=== PATIENT | female | born 1995 | race Caucasian/White ===

== ENCOUNTER → 2021-08-28 | Outpatient (CLI) | payer OTHER, SELFPAY ==
[2021-08-28 09:56] LABS: Thyroid Stim Hormone (TSH) 1.26 uIU/mL (0.358-3.74)
[2021-08-31 15:39] LABS: Testosterone Free 4.1 pg/mL (0.0-4.2)
== END | disposition home or self-care (01) ==
LOC: LAB 08:39
PROVIDERS: Referring Provider Nurse Practitioner Women's Health; Visit Provider Nurse Practitioner Women's Health
DX: Z13.29 Encounter for screening for other suspected endocrine disorder (principal); N97.0 Female infertility associated with anovulation
CPT/HCPCS: 36415; 82627; 84146; 84402; 84443; 82626

== ENCOUNTER → 2021-09-15 | Outpatient (CLI) | payer OTHER, SELFPAY ==
[2021-09-15 09:17] LABS: Progesterone Level 7.16 ng/mL (See Comment)
== END | disposition home or self-care (01) ==
PROVIDERS: Referring Provider Nurse Practitioner Women's Health; Visit Provider Nurse Practitioner Women's Health
DX: N97.8 Female infertility of other origin (principal)
CPT/HCPCS: 36415; 84144

== ENCOUNTER → 2021-10-03 | Outpatient (CLI) | payer OTHER, SELFPAY ==
--- NOTE | 2021-10-03 13:07 | RAD_ITS ---
STUDY: HYSTEROSALPINGOGRAM. REASON FOR EXAM: Female, 26 years old. Infertility FLUOROSCOPY TIME (if supplied): ( 20 seconds ) minutes/seconds. 3 images were obtained. TECHNIQUE: A hysterosalpingogram was performed by the sales utility representative. Imaging was provided. COMPARISON: None. FINDINGS: The uterus is unremarkable. No intraluminal filling defect is seen. Both fallopian tubes are patent with free spill. RAD/Salpingogram IMPRESSION: Unremarkable hysterosalpingogram. Electronically Signed: Carlos Ortiz MD at 14:00 EDT ,
--- NOTE | 2021-10-03 14:07 | OP.PCM_ITS ---
Problems Associated Problem List Diagnoses (1) Infertility: Operative Report Date of Procedure: 10/03/21 Preop diagnosis: Infertility Postop diagnosis: Same plus bilateral tubal patency Procedure: Hysterosalpingogram Surgeon: Amanda Mejia Implantable devices: None Complications: None Findings: Bilateral tubal patency and normal uterine cavity Operative details: Patient was taken to the x-ray room and was placed on the x- ray table and was in the dorsal lithotomy position. Speculum was placed in the vagina and the cervix prepped with Betadine and the HSG catheter was easily introduced into the uterus and speculum removed. Radiologist was brought in and while pushing radiopaque dye into the uterus via the HSG catheter the radiologist took multiple images and views and confirmed bilateral tubal patency seen. No gross uterine filling defects or abnormalities were seen. All instruments removed from the vagina and the uterus without complication. Patient tolerated the procedure well.
== END | disposition home or self-care (01) ==
PROVIDERS: PCP Family Medicine; Referring Provider Obstetrics & Gynecology; Visit Provider Obstetrics & Gynecology
DX: N97.0 Female infertility associated with anovulation (principal)
CPT/HCPCS: 58340; 74740; Q9967

== ENCOUNTER → 2021-12-16 | Outpatient (CLI) | payer OTHER, SELFPAY ==
[2021-12-16 16:27] LABS: Progesterone Level 13.21 ng/mL (See Comment)
== END | disposition home or self-care (01) ==
LOC: LAB 15:17
PROVIDERS: PCP Family Medicine; Visit Provider Nurse Practitioner Women's Health
DX: N97.0 Female infertility associated with anovulation (principal)
CPT/HCPCS: 36415; 84144

== ENCOUNTER → 2022-01-21 | Outpatient (CLI) | payer OTHER, SELFPAY ==
[2022-01-21 11:57] LABS: Amphetamine Urine VISTA NEGATIVE (<1000 ng/mL); Barbiturate Urine VISTA NEGATIVE (< 200 ng/mL); Benzodiazepine Urine VISTA NEGATIVE (< 200 ng/mL); Cocaine Urine VISTA NEGATIVE (< 300 ng/mL); Ecstacy Urine VISTA NEGATIVE (< 500 ng/mL); Methadone Urine VISTA NEGATIVE (< 300 ng/mL); PCP Urine VISTA NEGATIVE (< 25 ng/mL); THC Urine VISTA NEGATIVE (< 50 ng/mL); Vista UDS pH Range 6
[2022-01-22 22:06] LABS: Chlamydia By Nucleic Acid AMP Negative (Negative)
[2022-01-23 20:28] LABS: Gonococcus By Nucleic Acid AMP Negative (Negative)
== END | disposition home or self-care (01) ==
LOC: LABSPEC 11:28
PROVIDERS: PCP Family Medicine; Visit Provider Obstetrics & Gynecology
DX: O09.90 Supervision of high risk pregnancy, unspecified, unspecified trimester (principal)
CPT/HCPCS: 80307; 87086; 87088; 87491; 87591

== ENCOUNTER → 2022-02-20 | Outpatient (CLI) | payer OTHER, SELFPAY ==
[2022-02-20 16:44] LABS: Absolute Lymphocyte Count 1.85 X10^3/uL (0.83-4.51); Absolute Neutrophil Count 2.9 X10^3/uL (2.0-7.7); Basophil# 0.03 X10^3/uL; Basophil% 0.5 % (0-1); Eosinophil# 0.04 X10^3/uL; Eosinophils% 0.7 % (0-5); Hematocrit 35.6 % (37-47); Hemoglobin 12.5 g/dL (12.0-15.0); Lymphocyte # 1.85 X10^3/ul (0.83-4.51); Lymphocyte % 33.6 % (19-41); Mean Corp Hgb Conc 35.1 g/dL (32-36); Mean Corpuscular Hgb 31.4 pg (27.0-32.0); Mean Corpuscular Volume 89.4 fL (81-99); Monocyte# 0.72 X10^3/uL; Monocyte% 13.1 % (0-10); NRBC Flagged by Analyzer 0 % (0-5); Neutrophil # 2.86 X10^3/uL (2.7-7.7); Neutrophil % 51.9 % (47-70); Platelet Count 154 K/mm3 (150-450); RBC Distribution Width CV 11.5 % (11.6-14.6); RBC Distribution Width SD 37.1 fl (35.1-43.9); Red Blood Count 3.98 M/mm3 (4.2-5.4); White Blood Count 5.5 K/mm3 (4.4-11.0)
[2022-02-23 09:55] LABS: HIV - WCH Non-Reactive (Nonreactive); Hepatitis B Surface Antigen Non-Reactive (Nonreactive); Hepatitis C Antibody Non-Reactive (Nonreactive); Rubella IgG Reactive (Nonreactive); Syphilis Antibodies Non-reactive
== END | disposition home or self-care (01) ==
PROVIDERS: PCP Family Medicine; Visit Provider Obstetrics & Gynecology
DX: O09.90 Supervision of high risk pregnancy, unspecified, unspecified trimester (principal)
CPT/HCPCS: 36415; 85025; 86703; 86762; 86780; 86803; 86850; 86900; 86901; 87340

== ENCOUNTER → 2022-06-11 | Outpatient (CLI) | payer OTHER, SELFPAY ==
[2022-06-11 09:17] LABS: Absolute Lymphocyte Count 1.95 X10^3/uL (0.83-4.51); Absolute Neutrophil Count 5.9 X10^3/uL (2.0-7.7); Basophil# 0.03 X10^3/uL; Basophil% 0.4 % (0-1); Eosinophil# 0.06 X10^3/uL; Eosinophils% 0.7 % (0-5); Hematocrit 33.7 % (37-47); Hemoglobin 11.5 g/dL (12.0-15.0); Lymphocyte # 1.95 X10^3/ul (0.83-4.51); Mean Corp Hgb Conc 34.1 g/dL (32-36); Mean Corpuscular Hgb 30.9 pg (27.0-32.0); Mean Corpuscular Volume 90.6 fL (81-99); Monocyte# 0.48 X10^3/uL; Monocyte% 5.7 % (0-10); NRBC Flagged by Analyzer 0 % (0-5); Neutrophil # 5.91 X10^3/uL (2.7-7.7); Neutrophil % 69.7 % (47-70); Platelet Count 147 K/mm3 (150-450); RBC Distribution Width CV 12.2 % (11.6-14.6); RBC Distribution Width SD 40.1 fl (35.1-43.9); Red Blood Count 3.72 M/mm3 (4.2-5.4); White Blood Count 8.5 K/mm3 (4.4-11.0)
[2022-06-11 09:21] LABS: Glucose Challenge Gest 1H 50g 127 mg/dL (70-140)
[2022-06-11 10:07] LABS: HIV - WCH Non-Reactive (Nonreactive); Syphilis Antibodies Non-reactive
== END | disposition home or self-care (01) ==
LOC: PAVLAB 08:51
PROVIDERS: Obstetrics & Gynecology; PCP Family Medicine; Referring Provider Obstetrics & Gynecology; Visit Provider Obstetrics & Gynecology
DX: O09.90 Supervision of high risk pregnancy, unspecified, unspecified trimester (principal); Z13.1 Encounter for screening for diabetes mellitus; Z3A.00 Weeks of gestation of pregnancy not specified
CPT/HCPCS: 36415; 82950; 85025; 86703; 86780

== ENCOUNTER → 2022-07-08 | Outpatient (CLI) | payer OTHER, SELFPAY ==
[2022-07-08 13:10] LABS: Absolute Neutrophil Count 6.1 X10^3/uL (2.0-7.7); Basophil# 0.05 X10^3/uL; Basophil% 0.6 % (0-1); Eosinophil# 0.04 X10^3/uL; Eosinophils% 0.4 % (0-5); Hematocrit 34.6 % (37-47); Hemoglobin 11.8 g/dL (12.0-15.0); Lymphocyte % 23.4 % (19-41); Mean Corp Hgb Conc 34.1 g/dL (32-36); Mean Corpuscular Hgb 30.6 pg (27.0-32.0); Mean Corpuscular Volume 89.6 fL (81-99); Mean Platelet Vol. 9.8 fl (6.2-12.0); Monocyte% 6.7 % (0-10); NRBC Flagged by Analyzer 0 % (0-5); Neutrophil % 67.9 % (47-70); Platelet Count 143 K/mm3 (150-450); RBC Distribution Width CV 12.3 % (11.6-14.6); RBC Distribution Width SD 39.7 fl (35.1-43.9); Red Blood Count 3.86 M/mm3 (4.2-5.4)
== END | disposition home or self-care (01) ==
LOC: PAVLAB 12:59
PROVIDERS: PCP Family Medicine; Referring Provider Obstetrics & Gynecology; Visit Provider Obstetrics & Gynecology
DX: O99.119 Other diseases of the blood and blood-forming organs and certain disorders involving the immune mechanism complicating pregnancy, unspecified trimester (principal); D69.6 Thrombocytopenia, unspecified
CPT/HCPCS: 36415; 85025

== ENCOUNTER → 2022-08-05 | Outpatient (CLI) | payer OTHER, SELFPAY | END | disposition home or self-care (01) | LOC: LABSPEC 15:04 | PROVIDERS: PCP Family Medicine; Referring Provider Nurse Practitioner Women's Health; Visit Provider Nurse Practitioner Women's Health | DX: O09.90 Supervision of high risk pregnancy, unspecified, unspecified trimester (principal); Z3A.00 Weeks of gestation of pregnancy not specified | CPT/HCPCS: 87081 ==

== ENCOUNTER → 2022-08-15 | Outpatient (CLI) | payer OTHER, SELFPAY ==
[2022-08-15 11:46] LABS: Absolute Lymphocyte Count 1.84 X10^3/uL (0.83-4.51); Absolute Neutrophil Count 5.4 X10^3/uL (2.0-7.7); Basophil# 0.05 X10^3/uL; Basophil% 0.6 % (0-1); Eosinophil# 0.02 X10^3/uL; Eosinophils% 0.2 % (0-5); Hematocrit 35.3 % (37-47); Hemoglobin 11.7 g/dL (12.0-15.0); Lymphocyte # 1.84 X10^3/ul (0.83-4.51); Lymphocyte % 22.4 % (19-41); Mean Corp Hgb Conc 33.1 g/dL (32-36); Mean Corpuscular Hgb 30.1 pg (27.0-32.0); Mean Corpuscular Volume 90.7 fL (81-99); Mean Platelet Vol. 10.7 fl (6.2-12.0); Monocyte# 0.73 X10^3/uL; Monocyte% 8.9 % (0-10); NRBC Flagged by Analyzer 0 % (0-5); Neutrophil # 5.41 X10^3/uL (2.7-7.7); Neutrophil % 65.8 % (47-70); Platelet Count 144 K/mm3 (150-450); RBC Distribution Width CV 12.4 % (11.6-14.6); RBC Distribution Width SD 39.8 fl (35.1-43.9); Red Blood Count 3.89 M/mm3 (4.2-5.4); White Blood Count 8.2 K/mm3 (4.4-11.0)
== END | disposition home or self-care (01) ==
LOC: LAB 11:06
PROVIDERS: PCP Family Medicine; Referring Provider Nurse Practitioner Women's Health; Visit Provider Nurse Practitioner Women's Health
DX: O99.119 Other diseases of the blood and blood-forming organs and certain disorders involving the immune mechanism complicating pregnancy, unspecified trimester (principal); D69.6 Thrombocytopenia, unspecified; Z3A.00 Weeks of gestation of pregnancy not specified
CPT/HCPCS: 36415; 85025

== ENCOUNTER 2022-09-04 06:35 | Inpatient (IN) | payer OTHER, SELFPAY ==
[2022-09-04] VITALS (29 sets, daily range): BP systolic 98–139; BP diastolic 51–80; PULSE 63–126; TEMP 36.3–37.2; O2SAT 82–100; BMI 28.5
[2022-09-04 06:26] LABS: ROM Internal Control Test YES-OK TO RESULT pt. (Internal QC)
[2022-09-04 06:28] LABS: ROM Patient Test POSITIVE (Negative)
[2022-09-04] MEDS: Lactated Ringers 1,000 ML 50 ML IV (07:20)
[2022-09-04 07:26] LABS: Absolute Lymphocyte Count 2.11 X10^3/uL (0.83-4.51); Absolute Neutrophil Count 7.7 X10^3/uL (2.0-7.7); Basophil# 0.04 X10^3/uL; Basophil% 0.4 % (0-1); Eosinophil# 0.02 X10^3/uL; Eosinophils% 0.2 % (0-5); Hematocrit 38.1 % (37-47); Lymphocyte # 2.11 X10^3/ul (0.83-4.51); Lymphocyte % 19.8 % (19-41); Mean Corp Hgb Conc 34.1 g/dL (32-36); Mean Corpuscular Hgb 30.2 pg (27.0-32.0); Mean Corpuscular Volume 88.4 fL (81-99); Mean Platelet Vol. 10.8 fl (6.2-12.0); Monocyte# 0.66 X10^3/uL; Monocyte% 6.2 % (0-10); NRBC Flagged by Analyzer 0 % (0-5); Neutrophil # 7.72 X10^3/uL (2.7-7.7); Neutrophil % 72.6 % (47-70); Platelet Count 157 K/mm3 (150-450); RBC Distribution Width CV 13.2 % (11.6-14.6); RBC Distribution Width SD 41.6 fl (35.1-43.9); Red Blood Count 4.31 M/mm3 (4.2-5.4); White Blood Count 10.6 K/mm3 (4.4-11.0)
--- NOTE | 2022-09-04 07:26 | HP.PCM.OB_ITS ---
HPI - General General Date of Admission: 09/04/22 HPI Narrative PHI TREVIÑO, is a 27 F who presents with contracitons and ROM since 9 pm wednesday. she denies any signs of infection no fever ctx are increasing this morning. she has had clear fluid intermittently no vb good FM Maternal Data Information MARY KATE Calculator Estimated Delivery Date Method Current WG Current Estimate 09/02/22 LMP (Certain) 40w 2d Other Estimates 09/02/22 Ultrasound #1 40w 2d PFSH PFSH Medical History History of depression Home Medications magnesium 200 mg tablet 300 mg PO DAILY 07/08/22 [History Last Taken 09/03/22 21:00] valacyclovir 500 mg tablet (Valtrex) 500 mg PO DAILY #30 tabs 08/13/22 [Rx Last Taken 09/04/22 04:00] prenat.vits,jamal,cxf-[id number] 1 tab PO DAILY 09/04/22 [History Last Taken 09/04/22 04:00] Allergy/AdvReac Type Severity Reaction Status Date / Time No Known Allergies Allergy Verified 09/04/22 06:07 Family History Grandmother Breast cancer Father History of throat cancer Oral-mouth cancer Surgical History [place] teeth removed Social History adopted: No household members: spouse housing: house current occupational status: employed current occupation: teacher current occupational exposures/hazards: No pets and animals: Yes pets and animals: dog(s) history of recent travel: Yes (October) out of state: Yes out of country: No sexually active: Yes Smoking Status: Never smoker alcohol intake: former details: occasional with dinner prior to substance use type: does not use well-balanced diet: daily or most days caffeine: Yes Type: coffee Number of servings: 1 eating out: rarely or never during the past year weight has: remained stable what type of physical activity do you participate in: none and walking flory/tenriism: Cheondoism seatbelt use: always do you feel safe at home: Yes additional social history: - Avinash- [employer] History 1 Elective abortions Hx Para 0 Spontaneous abortions Hx # Term Pregnancies Ectopic pregnancies Hx # Pregnancies Multiple births # of living children Visit Details Expected Delivery Route/Plan Labor Preferences- CB/BF classes: yes, enc just breath class labor support person: Avinash labor intervention preferences: pain management options preferred: goal unmedicated, open to epidural cut cord/dad catch: would like to announce gender;yes to catching!! : yes PP control planned: discussed discussed possible routes of delivery and associated risks: [] special requests: [] Plans Covid status: unvaccinated Flu vaccine: declines Tdap vaccine: Rhogam: na LARC form signed: yes Problem list reviewed and updated with the most current plan of care details and appropriate orders placed. Relevant counseling for the gestational age provided. Continue routine care and follow up unless otherwise noted in visit notes/problem list details OB Flowsheet Initial Weight: Not Recorded Date -?-?-?-?-?-?-?-?-?-?-?-?- EGA Weight BP Urine Prot -?-?-?-?-?-?-?-?-?-?-?-?- Glucose FHR FuHt Pres Dilation -?-?-?-?-?-?-?-?-?-?-?-?- Effaced St Visit Note 01/21/22 -?-?-?-?-?-?-?-?-?-?-?-?- 8w 0d 128 lb 117/75 -?-?-?-?-?-?-?-?-?-?-?-?- -?-?-?-?-?-?-?-?-?-?-?-?- JV- CRL consiste nt with LMP 02/20/22 -?-?-?-?-?-?-?-?-?-?-?-?- 12w 2d 131 lb 122/58 Negative -?-?-?-?-?-?-?-?-?-?-?-?- Negative 160 -?-?-?-?-?-?-?-?-?-?-?-?- SM- no vb crampi ng 03/19/22 -?-?-?-?-?-?-?-?-?-?-?-?- 16w 1d 136 lb 6 oz 111/61 Nega tive -?-?-?-?-?-?-?-?-?-?-?-?- Negative 145 -?-?-?-?-?-?-?-?-?-?-?-?- JV- no lof, vagi nal bleeding, or cramping. new ob labs reviewed. wants gender to be a surprise 04/13/22 -?-?-?-?-?-?-?-?-?-?-?-?- 19w 5d 140 lb 8 oz Negative -?-?-?-?-?-?-?--?-?-?-?-?- Negative 150 20 -?-?-?-?-?-?-?-?-?-?-?-?- LC- no lof, vb. reviewed anatomy results. pelvic rest til 28 weeks. feel occ flutters 05/14/22 -?-?-?-?-?-?-?-?-?-?-?-?- 24w 1d 147 lb 6 oz 121/77 Nega tive -?-?-?-?-?-?-?-?-?-?-?-?- Negative 158 24 -?-?-?-?-?-?-?-?-?-?-?-?- JV- no lof, vagi nal bleeding, or dec fm. has rpt scan for placenta on her birthday! [birth year] -?-?-?-?-?-?-?-?-?-?-?-?- 28w 1d 153 lb 8 oz 108/70 Nega tive -?-?-?-?-?-?-?-?-?-?-?--?- Negative 143 28 -?-?-?-?-?-?-?-?-?-?-?-?- MH-NO VB, LOF. G ood FM. Larc. 28 wk labs. 06/25/22 -?-?-?-?-?-?-?-?-?-?-?-?- 30w 1d 154 lb 4 oz 117/74 Nega tive -?-?-?-?-?-?-?-?-?-?-?-?- Negative 145 30 -?-?-?-?-?-?-?-?-?-?-?-?- JV- no lof ,vagi nal bleeding, or dec fm. pt has pp depression history and was told to take ssri starting now. She started it and had some side effects of dizziness and fatigue. recommend stopping and restarting in period. 07/08/22 -?-?-?-?-?-?-?-?-?-?-?-?- 32w 0d 159 lb 2 oz 112/71 -?-?-?-?-?-?-?-?-?-?-?-?- 140 33 -?-?-?-?-?-?-?-?-?-?-?-?- LC- no lof/vb/ct x. good fm.will repeat cbc in 4 weeks. 07/23/22 -?-?-?-?-?-?-?-?-?-?-?-?- 34w 1d 161 lb 4 oz 113/74 Nega tive -?-?-?-?-?-?-?-?-?-?-?-?- Negative 145 34 -?-?-?-?-?-?-?-?-?-?-?-?- KW- good FM. no lof/vb/ctx. GBS next visit. labor precautions reviewed 08/05/22 -?-?-?-?-?-?-?-?-?-?-?-?- 36w 0d 161 lb 4 oz 120/81 Nega tive -?-?-?-?-?-?-?-?-?-?-?-?- Negative 153 -?-?-?-?-?-?-?-?-?-?-?-?- MH-No VB, LOF or CTX. Good Fm. GBS 08/13/22 -?-?-?-?-?-?-?-?-?-?-?-?- 37w 1d 162 lb 123/78 Positive -?-?-?-?-?-?-?-?-?-?-?-?- Negative 145 38 Cephalic -?-?-?-?-?-?-?-?-?-?-?-?- KW- good FM. no lof, ctx, vb. denies need for VE today. Valtrex, CBC and keflex (Impetigo) ordered. 08/19/22 -?-?-?-?-?-?-?-?-?-?-?-?- 38w 0d 167 lb 8 oz 106/73 Nega tive -?-?-?-?-?-?-?-?-?-?--?-?- Negative 146 38 0 -?-?-?-?-?-?-?-?-?-?-?-?- 60 -2 LC- good f m. no lof/ctx.vb. impetigo improving.plt 144. stable. 08/27/22 -?-?-?-?-?-?-?--?-?-?-?-?- 39w 1d 166 lb 127/84 101/64 -?-?-?-?-?-?-?-?-?-?-?-?- 135 39 Cephalic 1 -?-?-?-?-?-?-?-?-?-?-?-?- 60 -2 LC- good f m. no lof/ctx/vb. on valtrex. trace protein/neg glucose. denies PEC s/sx. BP normal. 09/02/22 -?-?-?-?-?-?-?-?-?-?-?-?- 40w 0d 167 lb 4 oz 123/84 Nega tive -?-?-?-?-?-?-?-?-?-?-?-?- Negative 140 40 Cephalic 1 .5 -?-?-?-?-?-?-?-?-?-?-?-?- 80 -2 LC- no vb/ ctx/lof. good fm. membranes swept today 09/04/22 -?-?-?-?-?-?-?-?-?-?-?-?- 40w 2d 166 lb 7.184 oz 125/73 -?-?-?-?-?-?-?-?-?-?-?-?- -?-?-?-?-?-?-?-?-?-?-?-?- NST FHR Rate Baby A Baseline: 130 Variability:: Moderate Accelerations:: 15 x 15 Decelerations:: None NST Reactive:: Yes FHR Category:: Category I Uterine Activity:: irregular ROS Constitutional Constitutional: Reports systems reviewed and no addt'l complaints, except as documented Eyes Eyes: Denies change in vision ENT HEENT: Reports systems reviewed and no addt'l complaints, except as documented; Denies headache(s) Cardiovascular Cardiovascular: Reports systems reviewed and no addt'l complaints, except as documented; Denies chest pain or dyspnea Respiratory/Chest Respiratory/Chest: Reports systems reviewed and no addt'l complaints, except as documented Gastrointestinal Gastrointestinal: Reports systems reviewed and no addt'l complaints, except as documented; Denies abdominal pain Genitourinary Genitourinary: Reports systems reviewed and no addt'l complaints, except as documented, contractions Details: present (irregular) and movement Details: present; Denies dysuria or genital lesions Musculoskeletal Musculoskeletal: Reports systems reviewed and no addt'l complaints, except as documented Neurologic Neurologic: Reports systems reviewed and no addt'l complaints, except as documented Endocrine Endocrinology: Reports systems reviewed and no addt'l complaints, except as documented Vital Signs Vital Signs Vital Signs: 09/04/22 05:52 09/04/22 05:52 09/04/22 05:52 Temperature Temperature Source Pulse Rate 95 Blood Pressure 125/73 H BP Systolic 125 BP Diastolic 73 Pulse Ox 82 09/04/22 05:53 09/04/22 05:53 09/04/22 05:51 Temperature Temperature Source Temporal Pulse Rate 126 H Blood Pressure BP Systolic BP Diastolic Pulse Ox 98 09/04/22 05:51 Temperature 97.8 F Temperature Source Pulse Rate Blood Pressure BP Systolic BP Diastolic Pulse Ox Weight Weight: 166 lb 7.184 oz Body Mass Index (BMI) 28.5 Physical Exam Const alert, oriented x3, no apparent distress and healthy appearing HEENT normocephalic and moist oral mucous membranes Head and Scalp: atraumatic Neck full ROM, no lymphadenopathy, supple and thyroid normal General: trachea midline Lymph Lymphatic: no lymphadenopathy noted Chest inspection of chest normal Resp normal respiratory effort Cardio regular rate GI normal to inspection, nondistended, normoactive bowel sounds, soft to palpation and non-tender Inspection: gravid external exam normal Manual OB Exam: estimated gestational size appropriate, presentation cephalic, dilated, effaced and station Extremity normal to inspection General Extremity: Negative for edema Skin no rashes or lesions noted Neuro no focal motor deficits and deep tendon reflexes 2+ bilaterally Motor Exam: strength 5/5 throughout and clonus absent Psych mental status grossly normal Labs Labs Labs: Blood Type O POSITIVE Antibody Screen NEGATIVE Hct 35.3 % (37-47) L Hgb 11.7 g/dL (12.0-15.0) L Pap Smear Negative Syphilis Total Ab Non-reactive Rubella IgG Antibody Reactive (Nonreactive) Hep Bs Antigen Non-Reactive (Nonreactive) Chlamydia DNA (RUPESH) Negative (Negative) Neisseria gonorrhoeae DNA (RUPESH) Negative (Negative) HIV 1&2 Antibody Non-Reactive (Nonreactive) Glucose 1 Hr 50 gm 127 mg/dL (70-140) Assessment & Plan (1) Thrombocytopenia affecting : COMMENT: plts 147 during routine cbc/cmp, rpt cbc in 4 weeks:143. Rpt 4 wk:144 (2) Supervision of high risk , antepartum: COMMENT: PRR , MARY KATE 09/02/22 Spouse Avinash (3) : QUALIFIERS: Weeks of gestation: 40 weeks Qualified Code(s): Z3A.40 - 40 weeks gestation of COMMENT: Neg GBS discussed genetic & carrier testing. anatomy reviewed (4) Anxiety: COMMENT: d/c 'd sertraline 50 mg, counseling encouraged considering zoloft at 36 wk (5) Family history of cleft palate: COMMENT: brother (6) Hx of herpes genitalis: COMMENT: valtrex at 36 weeks. (7) PROM with onset of labor more than 24 hours following rupture: COMMENT: amniotomy for remaining membranes, pitocin PRN PLAN: Plan Patient presents IAL, plan expectant management for , pitocin if needed. Pain management: prefers minimal intervention GBS neg. Management of any complications: none I have reviewed the [facility] and made any clinically relevant updates.
[2022-09-04 08:23] LABS: Syphilis Antibodies Non-reactive
--- NOTE | 2022-09-04 12:44 | PN_ITS ---
Progress Note pt current tracing: FHT: [] Moderate variability reactive no decelerations category I tracing [place]: [] Contractions reviewed tracing abnormalities since last note: [ ] A/P: [ ]
--- NOTE | 2022-09-04 12:44 | PCM.PN.BLA ---
Progress Note pt is breathing through contractions and very vocal, appears to be in moderate pain. She is doing wall palates with the nurse current tracing: FHT: Moderate variability reactive no decelerations category I tracing [place]: q 2-4 min Contractions Cx: 4/90/-1 clear fluid present, no signs of fevers or chills. A/P: 27 y/o G1 in early active labor- continue conservative management. pt does not want epidural. continue nitrous as needed.
[2022-09-04] MEDS: Lactated Ringers 1,000 ML 200 ML IV ×2 (15:25→19:21)
[2022-09-04] MEDS: LACTATED RINGERS 500 ML 999 ML IV ×2 (16:12→22:14)
[2022-09-04] MEDS: fentaNYL-bupivacaine (epidural) 100 ML BAG EPIDURAL ×2 (16:20→20:45)
[2022-09-04] MEDS: Oxytocin 15 Units/NS 250ml 15 UNITS/250 ML IV.SOLN 2 UNITS IV (17:43)
[2022-09-04] MEDS: DiphenhydrAMINE 50 MG/ML Syringe IV (21:49)
[2022-09-05] VITALS (23 sets, daily range): BP systolic 101–132; BP diastolic 50–78; PULSE 66–129; RESP 14–16; TEMP 36.1–37.5; O2SAT 96–100
[2022-09-05] MEDS: LACTATED RINGERS 500 ML 999 ML IV (00:20)
[2022-09-05] MEDS: 0.9% Saline Lock 10 ML Syringe IV (02:50)
[2022-09-05] MEDS: Methylergonovine 0.2 MG/ML Ampul IM (04:56)
--- NOTE | 2022-09-05 05:03 | EX.PCM.OBRPT ---
Assessment & Plan (1) PROM with onset of labor more than 24 hours following rupture: COMMENT: amniotomy for remaining membranes, pitocin PRN (2) Thrombocytopenia affecting : COMMENT: plts 147 during routine cbc/cmp, rpt cbc in 4 weeks:143. Rpt 4 wk:144 (3) Supervision of high risk , antepartum: COMMENT: PRR , MARY KATE 09/02/22 Spouse Avinash (4) : QUALIFIERS: Weeks of gestation: 40 weeks Qualified Code(s): Z3A.40 - 40 weeks gestation of COMMENT: Neg GBS discussed genetic & carrier testing. anatomy reviewed (5) Anxiety: COMMENT: d/c 'd sertraline 50 mg, counseling encouraged considering zoloft at 36 wk (6) Family history of cleft palate: COMMENT: brother (7) Hx of herpes genitalis: COMMENT: valtrex at 36 weeks. Maternal Data Information MARY KATE Calculator Estimated Delivery Date Method Current WG Current Estimate 09/02/22 LMP (Certain) 40w 3d Other Estimates 09/02/22 Ultrasound #1 40w 3d Final MARY KATE: 09/02/22 Final MARY KATE Source: LMP Gestational age: 40 weeks 3 days Vaginal Delivery Operative Information Date of Procedure: 09/05/22 Pre-Operative Diagnosis: 27 y/o @ 40 weeks 3 days Post-Operative Diagnosis: 27 y/o @ 40 weeks 3 days Type of Anesthesia: Epidural Drain: Farrell to straight drain Estimated Blood Loss: 200c Time of Delivery: 04:51 Findings Description of Procedure: Patient began pushing and delivered the head in the EDWIN presentation. The head was delivered atraumatically. The anterior was delivered with the help of mcRobert's maneuver and suprapubic pressure. The posterior shoulder delivered without complication followed by the rest of the and the was placed on the maternal abdomen. Delayed cord clamping was employed for approximately 60 seconds. Cord was clamped and cut and gentle traction was applied to the cord and the placenta delivered spontaneously immediately following it was noted to be intact with three-vessel cord. The perineum and vagina were inspected and noted to have a 1st degree perineal laceration. EBL was 200cc. Patient and infant tolerated delivery well. Presentation: Vertex Amniotic Membrane Rupture Type: Spontaneous Amniotic Fluid Description: Clear Placental Delivery Description: Spontaneous Placenta Disposition: [facility] Cord Vessel Description: 3 Vessels Cord Entanglement: None Infant A Gender: Male (1 minute): 9 (5 minute): 9 Delayed Cord Clamping: Yes Post Vaginal Delivery Medications Given After Delivery: IV Pitocin and IM Methergin Episiotomy Description: None Laceration: 1st degree Complication Complications: None Multi Select Codes Urinary/Genital Urinary/Genital CPT Codes: 25495 Vaginal Delivery [facility]
--- NOTE | 2022-09-05 05:06 | DCINST_ITS ---
Discharge Instructions Diet Discharge Diet: No restrictions Activity Discharge Activity: Return to Normal Activity, May Not Drive (while taking narcotic pain medications.) and May Shower May resume sexual activity in: 4-6 weeks Dressing / Incision Call your doctor if your incision/area has: Continuous Slow Oozing, Sudden Increased Bleeding, Increased Pain/ Swelling, Increased Redness and Foul Smelling Discharge Follow Up Care Please Follow Up With: Siria Meza, DO When: Call [phone] to make an appointment with your doctor in 6 weeks. If you had elevated blood pressure or 4th degree laceration, you will need to be seen in 2 weeks. Test Results: Test results from this visit will be discussed in further detail at your follow- up appointment, if applicable. Discharge Plan Admission Admit Date/Time: 09/04/22 06:35 Attending Provider: Siria Meza Primary Care Provider: Heber Knox Discharge Orders/Prescriptions Prescriptions: No Action magnesium 200 mg tablet 300 mg PO DAILY valacyclovir [Valtrex] 500 mg tablet 500 mg PO DAILY Qty: 30 1RF #2 Tablet 1 tab PO DAILY Referrals / Follow Up: Heber Knox MD [Primary Care Provider] -
[2022-09-05] MEDS: Oxytocin 15 Units/NS 250ml 15 UNITS/250 ML IV.SOLN 83 UNITS IV (05:28)
--- NOTE | 2022-09-05 07:17 | NURSING ---
epidural catheter removed. blue tip intact.
[2022-09-05] MEDS: Naproxen 500 MG Tablet PO (07:57)
--- NOTE | 2022-09-05 11:20 | CASEMGMT ---
Social Work Assessment Labor and Delivery Unit Patient Address: [address] [place] [address] [place] [address] Phone number: [phone] Date of Referral: 09/04/22 Time of Referral:? 08:08 Referred By: Tasha Gibson Date of Intervention: 09/05/22? Time of Intervention:? 11:15 am Reason for Referral: family hx AOD ? History obtained from: medical records, mother of baby (MOB) and father of baby (FOB) Household composition: MOB reports she and FOB own their home, and feel it provides adequate space. ? Patient's parent/guardian status: MOB reports she has been with FOB for 8 years and are currently marries. FOB, Avinash 30 years old, is actively involved with NB, and has no other children. FOB reports no history of mental health, DV or AOD. Medical History: MOB was engaged in care with Roberto at [place] starting at 8 weeks. MOB reports this is her first that resulted in the of her NB, Robby. Robby was born 09[birth year], weighing 3875g, and Apgars 9/9 and a plan to breast feed. MOB report NB?s brass finisher will be MD Castro and has no plans for control at this time. ? Educational Status: MOB reports highest level of education is college degree, no learning concerns. ? Financial Status: Patient reports she is employed at [employer] and will have 15 weeks of maternity leave. FOB is currently employed rf[employer] systems architect and will have limited time off. Infant Supplies: MOB reports having all the supplies needed including a car seat, bassinet in their bedroom, clothes and diapers/wipes. Childcare/Caregiver(s): MOB reports she will be home with NB for 15 weeks. MOB explained they have support from family, friends and a previously established assembly line upholsterer. Transportation: MOB reports she and FOB have vehicles, no concerns. ??? Programs/Agencies Involved: ??MOB reports no current community resources and declined referrals. ??? Children Services/Legal Issues: None reported??? Behavioral Health Issues: ??Mental Health History:? MOB reports history of anxiety and depression. MOB reports her PCP prescribes her Zoloft and will be discussing a plan to resume. MOB reports not being engaged in counseling services. MOB?s father previously struggled with AOD, MOB denied AOD use. Family/Social Stressors:? No stressors identified. Support Systems: MOB reports she is supported by FOB, friends and their families. Depression/Shaken Baby/Safe Sleeping: TIAN educated MOB on depression/anxiety as well as shaken baby and safe sleep. MOB report NB will be sleeping in a basinet beside their bed but has a crib in his nursey to transition to when he is older. SW provided MOB with educational information as well as resources on the topics. MOB report understanding and voice no other needs. SW encouraged MOB to contact OB or PCP if she is concerned with symptoms. ??? ASSESSMENT:? TIAN met with MOB and introduced herself and role as [facility] [place]. MOB in agreement to speak with SW with FOB present. SW utilized open and close ended questions to gather information needed for an assessment. MOB report having supplies needed, identified supports and reports no current community agency, declined referrals. MOB report history of anxiety, depression and was previously prescribed Zoloft with a plan to discuss resuming Zoloft with her PCP. TIAN educated MOB on safe sleep, shaken baby and PPD/A. TIAN also provided local resources for [facility]. TIAN updated RN of resources provided, no concerns. PLAN:? ?No further needs Ernestina Paul MSW, [place]
[2022-09-05] MEDS: Senna/Docusate Sodium 1 Tablet PO (16:26)
[2022-09-06 00:52] VITALS: BP 111/58; PULSE 68; RESP 16; TEMP 36.4; O2SAT 98
[2022-09-06 04:45] VITALS: BP 90/54; PULSE 67; RESP 16; TEMP 36.4; O2SAT 98
[2022-09-06] MEDS: Acetaminophen 500 MG Tablet 1000 MG PO (05:13)
--- NOTE | 2022-09-06 06:24 | PCM.PN.OB ---
Subjective Subjective Patient doing well without complaints. Tolerating PO. Ambulating and voiding without difficulty. Feeding well. Denies chest pain, shortness of breath, calf pain/swelling, fevers, chills, lightheadedness. She wants to go home today Objective Data Objective Data Vital Signs: Vital Signs Temp Pulse Resp BP Pulse Ox O2 Del Method 97.6 F L 67 16 90/54 L 98 Room Air 09/06/22 04:45 09/06/22 04:45 09/06/22 04:45 09/06/22 04:45 09/06/22 04:45 09/06/22 04:45 Oxygen Delivery Method Room Air Weight: 166 lb 7.184 oz Body Mass Index (BMI) 28.5 Intake & Output: Intake and Output for Last 24 Hours 09/04/22 09/05/22 09/06/22 23:59 23:59 23:59 Intake Total 3393.88 / 3393.88 1392.79 / 1392.79 Output Total 1400 / 1400 1000 / 1000 Balance 1992.88 / 1992.88 392.79 / 392.79 Lab / Micro Data Result Diagrams: 09/04/22 07:15 ROS Constitutional Constitutional: Denies chills, fatigue, fever(s), poor appetite or weakness Eyes Eyes: Denies blurry vision, change in vision, seeing flashes or spots in vision ENT HEENT: Denies dizziness, headache(s), loss taste/smell or sore throat Cardiovascular Cardiovascular: Denies chest pain, dizziness, dyspnea, irregular heart rhythm, palpitations or rapid heart rate Respiratory/Chest Respiratory/Chest: Denies chest tightness, cough, dyspnea or breast pain Gastrointestinal Gastrointestinal: Denies abdominal pain, constipation or vomiting Genitourinary Genitourinary: Denies dysuria or flank pain Musculoskeletal Musculoskeletal: Denies difficulty walking, joint pain, limited range of motion or numbness Neurologic Neurologic: Denies abnormal movements, abnormal speech, dizziness, numbness, seizure-like activity or syncope Psychiatric Psychiatric: Denies anxiety, behavioral changes, change in appetite, confusion, depression or suicidal thoughts Physical Exam Const alert, oriented x3 and no apparent distress General Appearance: cooperative and comfortable Resp normal respiratory effort Cardio regular rate GI normal to inspection, nondistended, normoactive bowel sounds GI Narrative: uterus is firm below umbilicus Palpation: soft Back/Spine no CVA tenderness and thoraco-lumbar ROM normal Extremity normal to inspection, no clubbing, cyanosis or edema, no calf tenderness and no pedal edema Psych mental status grossly normal, thought process normal, cooperative, affect normal, speech normal, activity/motor behavior normal, denies homicidal ideation and denies suicidal ideation Assessment & Plan (1) Status post vaginal delivery: (2) PROM with onset of labor more than 24 hours following rupture: COMMENT: amniotomy for remaining membranes, pitocin PRN (3) Thrombocytopenia affecting : COMMENT: plts 147 during routine cbc/cmp, rpt cbc in 4 weeks:143. Rpt 4 wk:144 (4) Supervision of high risk , antepartum: COMMENT: PRR , MARY KATE 09/02/22 Spouse Avinash (5) : QUALIFIERS: Weeks of gestation: 40 weeks Qualified Code(s): Z3A.40 - 40 weeks gestation of COMMENT: Neg GBS discussed genetic & carrier testing. anatomy reviewed (6) Anxiety: COMMENT: d/c 'd sertraline 50 mg, counseling encouraged considering zoloft at 36 wk (7) Family history of cleft palate: COMMENT: brother (8) Hx of herpes genitalis: COMMENT: valtrex at 36 weeks. PLAN: Plan s/p PPD # 1 1. routine post delivery care 2. breast feeding- support given 3. rh positive 4. rubella immune 5. dc to home later today
[2022-09-06 08:00] VITALS: BP 120/72; PULSE 62; RESP 16; TEMP 36.5; O2SAT 98
[2022-09-06] MEDS: Senna/Docusate Sodium 1 Tablet PO (10:36)
== END 2022-09-06 11:50 | disposition home or self-care (01) | DRG 807 ==
LOC: WPOUT 06:43 → WP 06:43
PROVIDERS: Obstetrics & Gynecology; Admitting Provider Obstetrics & Gynecology; PCP Family Medicine; Visit Provider Obstetrics & Gynecology
DX: O42.12 Full-term premature rupture of membranes, onset of labor more than 24 hours following rupture (principal); Z37.0 Single live birth; O99.344 Other mental disorders complicating childbirth; F41.9 Anxiety disorder, unspecified; O48.0 Post-term pregnancy; Z3A.40 40 weeks gestation of pregnancy; O70.0 First degree perineal laceration during delivery; Z86.19 Personal history of other infectious and parasitic diseases; Z82.79 Family history of other congenital malformations, deformations and chromosomal abnormalities
CPT/HCPCS: 59025; 59050; 84112; 85025; 86780; 86850; 86900; 86901; 99221; J7120; A4216; G0378

== ENCOUNTER → 2023-12-24 | Outpatient (CLI) | payer OTHER, SELFPAY ==
[2023-12-24 17:15] LABS: Absolute Lymphocyte Count 2.82 X10^3/uL (0.83-4.51); Absolute Neutrophil Count 6.2 X10^3/uL (2.0-7.7); Basophil# 0.03 X10^3/uL; Basophil% 0.3 % (0-1); Eosinophil# 0.05 X10^3/uL; Eosinophils% 0.5 % (0-5); Hematocrit 36.3 % (37-47); Hemoglobin 12.6 g/dL (12.0-15.0); Lymphocyte # 2.82 X10^3/ul (0.83-4.51); Lymphocyte % 28.9 % (19-41); Mean Corp Hgb Conc 34.7 g/dL (32-36); Mean Corpuscular Hgb 30.4 pg (27.0-32.0); Mean Corpuscular Volume 87.5 fL (81-99); Mean Platelet Vol. 10.3 fl (6.2-12.0); Monocyte# 0.64 X10^3/uL; Monocyte% 6.6 % (0-10); NRBC Flagged by Analyzer 0 % (0-5); Neutrophil # 6.18 X10^3/uL (2.7-7.7); Neutrophil % 63.4 % (47-70); Platelet Count 205 K/mm3 (150-450); RBC Distribution Width CV 11.6 % (11.6-14.6); RBC Distribution Width SD 36.7 fl (35.1-43.9); Red Blood Count 4.15 M/mm3 (4.2-5.4); White Blood Count 9.8 K/mm3 (4.4-11.0)
[2023-12-24 18:32] LABS: HIV - WCH Non-Reactive (Nonreactive); Hepatitis B Surface Antigen Non-Reactive (Nonreactive); Hepatitis C Antibody Non-Reactive (Nonreactive); Rubella IgG Reactive (Nonreactive); Syphilis Antibodies Non-reactive
[2023-12-27 20:07] LABS: Chlamydia By Nucleic Acid AMP Negative (Negative); Gonococcus By Nucleic Acid AMP Negative (Negative)
== END | disposition home or self-care (01) ==
PROVIDERS: PCP Family Medicine; Referring Provider Advanced Practice Midwife; Visit Provider Advanced Practice Midwife
DX: Z34.90 Encounter for supervision of normal pregnancy, unspecified, unspecified trimester (principal)
CPT/HCPCS: 36415; 85025; 86703; 86762; 86780; 86803; 86850; 86900; 86901; 87086; 87340; 87491; 87591

== ENCOUNTER → 2024-03-17 | Outpatient (CLI) | payer OTHER, SELFPAY ==
--- NOTE | 2024-03-17 12:20 | US_ITS ---
HISTORY: anatomy. TECHNIQUE: Transabdominal and transvaginal pelvic ultrasound was performed. 146 images. COMPARISON: None. FINDINGS: INTRAUTERINE GESTATION(s): Single. PRESENTATION: Breech. HEART MOTION: 139 bpm. PLACENTA: Posterior. No placenta previa. CERVIX: 4.3 cm long and closed. AMNIOTIC FLUID: Maximum vertical pocket 5 cm. biometry- BIPARIETAL DIAMETER: 4.8 cm, corresponding to 20 weeks 3 days. HEAD CIRCUMFERENCE: 18.6 cm, corresponding to 20 weeks 6 days. ABDOMINAL CIRCUMFERENCE: 16 cm, corresponding to 21 weeks 1 day. FEMUR LENGTH: 3.4 cm, corresponding to 20 weeks 4 days. ESTIMATED GESTATIONAL AGE: 20 weeks 6 days. ESTIMATED DUE DATE (MARY KATE): 07/29/2024 ESTIMATED WEIGHT: 339 g corresponding to 28th percentile. ANATOMY: Anterior and posterior cranial fossa, facial profile, nose/lips, orbits, spine, bilateral upper and lower extremities, four-chamber heart, stomach, three-vessel cord insertion, kidneys, and bladder visualized. US/OB Anatomy Scan IMPRESSION: Single living intrauterine currently in breech presentation with an estimated gestational age of 20 weeks 6 days. Unremarkable anatomic survey. Electronically Signed: Hetal Eaton MD at 15:34 EST ,
== END | disposition home or self-care (01) ==
PROVIDERS: PCP Family Medicine; Referring Provider Nurse Practitioner Women's Health; Visit Provider Nurse Practitioner Women's Health
DX: Z34.91 Encounter for supervision of normal pregnancy, unspecified, first trimester (principal); Z3A.12 12 weeks gestation of pregnancy
CPT/HCPCS: 76805

== ENCOUNTER → 2024-05-02 | Outpatient (CLI) | payer OTHER, SELFPAY ==
[2024-05-02 08:41] LABS: Absolute Lymphocyte Count 1.83 X10^3/uL (0.83-4.51); Absolute Neutrophil Count 5.7 X10^3/uL (2.0-7.7); Basophil# 0.02 X10^3/uL; Basophil% 0.2 % (0-1); Eosinophil# 0.07 X10^3/uL; Eosinophils% 0.9 % (0-5); Hemoglobin 10.9 g/dL (12.0-15.0); Lymphocyte # 1.83 X10^3/ul (0.83-4.51); Lymphocyte % 22.5 % (19-41); Mean Corp Hgb Conc 34.1 g/dL (32-36); Mean Corpuscular Hgb 30.8 pg (27.0-32.0); Mean Corpuscular Volume 90.4 fL (81-99); Monocyte# 0.47 X10^3/uL; Monocyte% 5.8 % (0-10); NRBC Flagged by Analyzer 0 % (0-5); Neutrophil % 69.9 % (47-70); Platelet Count 143 K/mm3 (150-450); RBC Distribution Width CV 12.3 % (11.6-14.6); RBC Distribution Width SD 40.5 fl (35.1-43.9); Red Blood Count 3.54 M/mm3 (4.2-5.4); White Blood Count 8.2 K/mm3 (4.4-11.0)
[2024-05-02 09:03] LABS: Glucose Challenge Gest 1H 50g 131 mg/dL (70-140)
[2024-05-02 09:36] LABS: HIV - WCH Non-Reactive (Nonreactive); Syphilis Antibodies Non-reactive
== END | disposition home or self-care (01) ==
PROVIDERS: PCP Family Medicine; Referring Provider Obstetrics & Gynecology; Visit Provider Obstetrics & Gynecology
DX: Z34.82 Encounter for supervision of other normal pregnancy, second trimester (principal)
CPT/HCPCS: 36415; 82950; 85025; 86703; 86780

== ENCOUNTER → 2024-05-17 | Outpatient (CLI) | payer OTHER, SELFPAY ==
[2024-05-17 13:49] LABS: ROM Internal Control Test YES-OK TO RESULT pt. (Internal QC); ROM Patient Test Negative (Negative); Record Kit Lot#, ROM+ K2451
== END | disposition home or self-care (01) ==
LOC: LABSPEC 13:22
PROVIDERS: PCP Family Medicine; Referring Provider Obstetrics & Gynecology; Visit Provider Obstetrics & Gynecology
DX: O26.899 Other specified pregnancy related conditions, unspecified trimester (principal); N89.8 Other specified noninflammatory disorders of vagina; Z3A.00 Weeks of gestation of pregnancy not specified
CPT/HCPCS: 84112

== ENCOUNTER → 2024-05-31 | Outpatient (CLI) | payer OTHER, SELFPAY ==
[2024-05-31 17:18] LABS: Absolute Lymphocyte Count 2.18 X10^3/uL (0.83-4.51); Basophil# 0.02 X10^3/uL; Basophil% 0.2 % (0-1); Eosinophil# 0.04 X10^3/uL; Eosinophils% 0.5 % (0-5); Hematocrit 31.9 % (37-47); Hemoglobin 10.7 g/dL (12.0-15.0); Lymphocyte # 2.18 X10^3/ul (0.83-4.51); Lymphocyte % 24.6 % (19-41); Mean Corp Hgb Conc 33.5 g/dL (32-36); Mean Corpuscular Hgb 30.3 pg (27.0-32.0); Mean Corpuscular Volume 90.4 fL (81-99); Mean Platelet Vol. 10.3 fl (6.2-12.0); Monocyte# 0.55 X10^3/uL; Monocyte% 6.2 % (0-10); NRBC Flagged by Analyzer 0 % (0-5); Neutrophil # 5.98 X10^3/uL (2.7-7.7); Neutrophil % 67.5 % (47-70); Platelet Count 140 K/mm3 (150-450); RBC Distribution Width CV 12.9 % (11.6-14.6); RBC Distribution Width SD 41.6 fl (35.1-43.9); Red Blood Count 3.53 M/mm3 (4.2-5.4); White Blood Count 8.9 K/mm3 (4.4-11.0)
== END | disposition home or self-care (01) ==
LOC: BWCLAB 15:40
PROVIDERS: PCP Family Medicine; Referring Provider Obstetrics & Gynecology; Visit Provider Obstetrics & Gynecology
DX: O99.119 Other diseases of the blood and blood-forming organs and certain disorders involving the immune mechanism complicating pregnancy, unspecified trimester (principal); D69.6 Thrombocytopenia, unspecified; Z3A.00 Weeks of gestation of pregnancy not specified
CPT/HCPCS: 36415; 85025

== ENCOUNTER → 2024-07-06 | Outpatient (CLI) | payer OTHER, SELFPAY ==
[2024-07-06 15:56] LABS: Absolute Lymphocyte Count 2.52 X10^3/uL (0.83-4.51); Basophil# 0.03 X10^3/uL; Basophil% 0.3 % (0-1); Eosinophil# 0.05 X10^3/uL; Eosinophils% 0.5 % (0-5); Hematocrit 33.8 % (37-47); Hemoglobin 11.2 g/dL (12.0-15.0); Lymphocyte # 2.52 X10^3/ul (0.83-4.51); Lymphocyte % 26.5 % (19-41); Mean Corp Hgb Conc 33.1 g/dL (32-36); Mean Corpuscular Hgb 30.6 pg (27.0-32.0); Mean Corpuscular Volume 92.3 fL (81-99); Mean Platelet Vol. 10.3 fl (6.2-12.0); Monocyte# 0.78 X10^3/uL; Monocyte% 8.2 % (0-10); NRBC Flagged by Analyzer 0 % (0-5); Platelet Count 163 K/mm3 (150-450); RBC Distribution Width SD 42.8 fl (35.1-43.9); Red Blood Count 3.66 M/mm3 (4.2-5.4); White Blood Count 9.5 K/mm3 (4.4-11.0)
== END | disposition home or self-care (01) ==
LOC: BWCLAB 14:38
PROVIDERS: PCP Family Medicine; Referring Provider Advanced Practice Midwife; Visit Provider Advanced Practice Midwife
DX: O99.013 Anemia complicating pregnancy, third trimester (principal); D69.6 Thrombocytopenia, unspecified; Z3A.00 Weeks of gestation of pregnancy not specified; O99.13 Other diseases of the blood and blood-forming organs and certain disorders involving the immune mechanism complicating the puerperium
CPT/HCPCS: 36415; 85025; 87081

== ENCOUNTER → 2024-07-06 | Outpatient (CLI) | payer OTHER, SELFPAY | END | disposition home or self-care (01) | LOC: BWCLAB 15:35 | PROVIDERS: PCP Family Medicine; Referring Provider Advanced Practice Midwife; Visit Provider Advanced Practice Midwife | DX: Z34.83 Encounter for supervision of other normal pregnancy, third trimester (principal) | CPT/HCPCS: 87081 ==

== ENCOUNTER 2024-07-19 11:11 | Inpatient (IN) | payer OTHER, SELFPAY ==
[2024-07-19] VITALS (63 sets, daily range): BP systolic 105–150; BP diastolic 56–110; PULSE 70–125; RESP 16–18; TEMP 36.4–37.2; O2SAT 78–100; BMI 28.0
[2024-07-19 11:09] LABS: ROM Internal Control Test YES-OK TO RESULT pt. (Internal QC)
[2024-07-19 11:12] LABS: ROM Patient Test POSITIVE (Negative); Record Kit Lot#, ROM+ K3294
[2024-07-19] MEDS: Lactated Ringers 1,000 ML 50 ML IV (11:40)
[2024-07-19 12:03] LABS: Absolute Lymphocyte Count 2.75 X10^3/uL (0.83-4.51); Absolute Neutrophil Count 7.4 X10^3/uL (2.0-7.7); Basophil# 0.04 X10^3/uL; Basophil% 0.4 % (0-1); Eosinophil# 0.02 X10^3/uL; Eosinophils% 0.2 % (0-5); Hematocrit 35.2 % (37-47); Hemoglobin 12.3 g/dL (12.0-15.0); Lymphocyte # 2.75 X10^3/ul (0.83-4.51); Lymphocyte % 24.3 % (19-41); Mean Corp Hgb Conc 34.9 g/dL (32-36); Mean Corpuscular Hgb 31.1 pg (27.0-32.0); Mean Corpuscular Volume 89.1 fL (81-99); Mean Platelet Vol. 10.5 fl (6.2-12.0); Monocyte# 0.87 X10^3/uL; Monocyte% 7.7 % (0-10); NRBC Flagged by Analyzer 0 % (0-5); Neutrophil # 7.38 X10^3/uL (2.7-7.7); Neutrophil % 65.2 % (47-70); Platelet Count 156 K/mm3 (150-450); RBC Distribution Width SD 41.8 fl (35.1-43.9); Red Blood Count 3.95 M/mm3 (4.2-5.4); White Blood Count 11.3 K/mm3 (4.4-11.0)
[2024-07-19 12:45] LABS: Syphilis Antibodies Nonreactive (Nonreactive)
--- NOTE | 2024-07-19 13:43 | HP.PCM.OB_ITS ---
HPI - General General Date of Admission: 07/19/24 HPI Narrative PHI TREVIÑO, is a 29 F who presents with SROM clear fluid positive SROM possibly 1 week ago, has had slow leaking sinc laron, no fevers of abdominal pain no regular ctx no vb. good fm no complications with . Maternal Data Information MARY KATE Calculator Estimated Delivery Date Method Current WG Current Estimate 07/27/24 LMP (Certain) 38w 6d PFSH PFSH Medical History (Updated 07/19/24 @ 13:[address] Amanda Mejia MD) Genital herpes affecting Status post vaginal delivery Anxiety History of depression Home Medications ?Medication ?Instructions ?Recorded ?Last Taken ?Type docosahexaenoic acid 200 mg mg PO 12/07/23 Unknown His tory capsule ( DHA) promethazine 12.5 mg tablet 12.5 mg PO Q6H PRN nausea and 01/17/24 Unknown Rx vomiting #30 tabs acyclovir 400 mg tablet 400 mg PO Q6H 7 days #28 tab s 03/03/24 Unknown Rx metoclopramide HCl 10 mg tablet 10 mg PO Q6H PRN nause a and 05/31/24 Unknown Rx (Reglan) vomiting #30 tabs iron PO 06/14/24 Unknown History valacyclovir 500 mg tablet 500 mg PO BID #60 tabs 06/04 10/25 Unknown Rx (Valtrex) Allergy/AdvReac Type Severity Reaction Status Date / Time No Known Allergies Allergy Verified 07/19/24 11:49 Family History Grandmother Breast cancer Father History of throat cancer Oral-mouth cancer Surgical History [place] teeth removed Social History adopted: No household members: spouse and children housing: house number of children: 1 current occupational status: employed 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) current occupational exposures/hazards: No pets and animals: Yes pets and animals: dog(s) history of recent travel: No sexually active: Yes Smoking Status: Never smoker alcohol intake: current details: occasional with dinner prior to substance use type: does not use well-balanced diet: daily or most days caffeine: Yes Type: coffee Number of servings: 1 eating out: rarely or never during the past year weight has: remained stable what type of physical activity do you participate in: walking flory/buddhist: Zoroastrianism seatbelt use: always do you feel safe at home: Yes additional social history: : [facility] [employer] History 2 Elective abortions Hx Para 1 Spontaneous abortions Hx # Term Pregnancies 1 Ectopic pregnancies Hx # Pregnancies Multiple births # of living children 1 Past Pregnancies Del. Date Name GA/Weeks Outcome Route Bth Weight Infant Gen Labor Lgth Anesthesia Del Locatn Provider FOB 09/05/22 Able 40 live - full term 8lbs 9oz Male [facility] Dr. Hoyt Delivery Date: 09/05/22 Last Updated by: Nora Crawford Thrombocytopenia Visit Details Expected Delivery Route/Plan Labor Preferences- CB/BF classes: no labor support person: Avinash labor intervention preferences: [] pain management options preferred: epidural cut cord/dad catch: yes : yes PP control planned: discussed discussed possible routes of delivery and associated risks: [] special requests: [] Plans Covid status: [] Flu vaccine: declined Tdap vaccine: [] Rhogam: na LARC form signed: yes movement and labor precautions reviewed. Problem list reviewed and updated with the most current plan of care details and appropriate orders placed. Relevant counseling for the gestational age provided. Continue routine care and follow up unless otherwise noted in visit notes/problem list details OB Flowsheet Initial Weight: Not Recorded Date -?-?-?-?-?-?-?-?-?-?-?-?- EGA Weight BP Urine Prot -?-?-?-?-?-?-?-?-?-?-?-?- Glucose FHR FuHt Pres Dilation -?-?-?-?-?-?-?-?-?-?-?-?- Effaced St Visit Note 12/24/23 -?-?-?-?-?-?-?-?-?-?-?-?- 9w 1d 139 lb 6 oz 116/75 -?-?-?-?-?-?-?-?-?-?-?-?- 158 -?-?-?-?-?-?-?-?-?-?-?-?- KW-CRL 23.9mm co ns with 9.3 weeks. declines NIPT. wants some appts in mt [place]. 01/17/24 -?-?-?-?-?-?-?-?-?-?-?-?- 12w 4d 140 lb 105/70 Negative -?-?-?-?-?-?-?-?-?--?-?-?- Negative 163 -?-?-?-?-?-?-?-?-?-?-?-?- MH-No VB. Some n ausea and dull headaches. OK for some caffeine. Sent promethazine. [facility] Us due to cost 02/22/24 -?-?-?-?-?-?-?-?-?-?-?-?- 17w 5d 143 lb 102/69 -?-?-?-?-?-?-?-?-?-?-?-?- 150 -?-?-?-?-?-?-?-?-?-?-?-?- kw- no vb/crampi ng. flutters. no concerns. wants [facility] US due to insurance costs with MFM 03/17/24 -?-?-?-?-?-?-?-?-?-?-?-?- 21w 1d 146 lb 4 oz 108/70 Nega tive -?-?-?-?-?-?-?-?-?-?-?-?- Negative 148 -?-?-?-?-?-?-?-?-?-?-?-?- JV- no cramping or spotting but did have rectal bleeding due to constipation. 04/11/24 -?-?-?-?-?-?-?-?-?-?-?-?- 24w 5d 151 lb 8 oz 103/72 Nega tive -?-?-?-?-?-?-?-?-?-?-?-?- Negative 145 -?-?-?-?-?-?-?-?-?-?-?-?- Sm- no vb lof go od fm n oreuglar ctx 05/02/24 -?-?-?-?-?-?-?-?-?-?-?-?- 27w 5d 155 lb 8 oz 112/82 Nega tive -?-?-?-?-?-?-?-?-?-?-?-?- Negative 154 28 -?-?-?-?-?-?-?-?-?-?-?-?- MH-No VB, LOF. G ood FM. Reviewed 28 wk labs, larc. 05/17/24 -?-?-?-?-?-?-?-?-?-?-?-?- 29w 6d 156 lb 126/85 Negative -?-?-?-?-?-?-?-?-?-?-?-?- Negative 128 28 -?-?-?-?-?-?-?-?-?-?-?-?- JV- pt complains of leaking clear fluid. She states that her water broke weeks before she knew it with her last . rom plus collected. cx closed. 05/31/24 -?-?-?-?-?-?-?-?-?-?-?-?- 31w 6d 160 lb 6 oz 119/74 Nega tive -?-?-?-?-?-?-?-?-?-?-?-?- Negative 141 30 -?-?-?-?-?-?-?-?-?-?-?-?- JV- JV- no lof ,vaginal bleeding , or dec fm. no complaint. labs done today and pending. 06/14/24 -?-?-?-?-?-?-?-?-?-?-?-?- 33w 6d 163 lb 4 oz 102/71 Trac e -?-?-?-?-?-?-?-?-?-?-?-?- Negative 145 34 Cephalic -?-?-?-?-?-?-?-?-?-?-?-?- KW-no vb/lof/ctx . good fm. CBC next visit KW-no vb/lof/ctx. good fm. C BC next visit. valtrex sent 06/28/24 -?-?-?-?-?-?-?-?-?-?-?-?- 35w 6d 165 lb 2 oz 107/72 Nega tive -?-?-?-?-?-?-?-?-?-?-?-?- Negative 145 35 Cephalic -?-?-?-?-?-?-?-?-?-?-?-?- SM- n ovb lof go o dfm no regualr ctx declined cbc at this time. 07/06/24 -?-?-?-?-?-?-?-?-?-?-?-?- 37w 0d 166 lb 4 oz 119/79 Nega tive -?-?-?-?-?-?-?-?-?-?-?-?- Negative 140 37 Cephalic 1 .5 -?-?-?-?-?-?-?-?-?-?-?-?- 70 -2 KW- no vb/ lof/ctx. good fm having increased anxiety- would like to try benadryl at night to see if that helps. GBS today and CBC. 07/12/24 -?-?-?-?-?-?-?-?-?-?-?-?- 37w 6d 168 lb 115/79 Trace -?-?-?-?-?-?-?-?-?-?-?-?- Negative 155 38 Cephalic 1 .5 -?-?-?-?-?-?-?-?-?-?-?-?- 80 -2 KW- no vb/ lof/ctx. good fm. GBS neg- plts now normal. 07/19/24 -?-?-?-?-?-?-?-?-?-?-?-?- 38w 6d 167 lb 105/71 Negative -?-?-?-?-?-?-?-?-?-?-?-?- Negative 135 36 Cephalic 3 -?-?-?-?-?-?-?-?-?-?-?-?- 80 -1 KW- no vb/ ctx. good fm. unsure if leaking fluid-has been having more discharge over the last few days and is changing pad reg. decreased fundal height today. to WP for ROM/US NST FHR Rate Baby A Baseline: 130 Variability:: Moderate Accelerations:: 15 x 15 Decelerations:: None NST Reactive:: Yes FHR Category:: Category I Uterine Activity:: irregular ROS Constitutional Constitutional: Reports systems reviewed and no addt'l complaints, except as documented Eyes Eyes: Denies change in vision ENT HEENT: Reports systems reviewed and no addt'l complaints, except as documented; Denies headache(s) Cardiovascular Cardiovascular: Reports systems reviewed and no addt'l complaints, except as documented; Denies chest pain or dyspnea Respiratory/Chest Respiratory/Chest: Reports systems reviewed and no addt'l complaints, except as documented Gastrointestinal Gastrointestinal: Reports systems reviewed and no addt'l complaints, except as documented; Denies abdominal pain Genitourinary Genitourinary: Reports systems reviewed and no addt'l complaints, except as documented, contractions Details: present (irregular) and movement Details: present; Denies dysuria or genital lesions Musculoskeletal Musculoskeletal: Reports systems reviewed and no addt'l complaints, except as documented Neurologic Neurologic: Reports systems reviewed and no addt'l complaints, except as documented Endocrine Endocrinology: Reports systems reviewed and no addt'l complaints, except as documented Vital Signs Vital Signs Vital Signs: 07/19/24 10:27 07/19/24 10:27 07/19/24 10:27 Temperature 98.9 F Temperature Source Temporal Pulse Rate Respiratory Rate 18 Blood Pressure BP Systolic BP Diastolic Pulse Ox 07/19/24 10:28 07/19/24 10:28 07/19/24 10:29 Temperature Temperature Source Pulse Rate 93 Respiratory Rate Blood Pressure 117/68 BP Systolic 117 BP Diastolic 68 Pulse Ox 97 07/19/24 10:29 07/19/24 11:43 07/19/24 11:43 Temperature Temperature Source Temporal Pulse Rate 92 Respiratory Rate 16 Blood Pressure BP Systolic BP Diastolic Pulse Ox 07/19/24 11:43 07/19/24 11:44 07/19/24 11:44 Temperature 98.2 F Temperature Source Pulse Rate 88 Respiratory Rate Blood Pressure 121/72 H BP Systolic 121 BP Diastolic 72 Pulse Ox Weight Weight: 163 lb 2.273 oz Body Mass Index (BMI) 28.0 Physical Exam Const alert, oriented x3, no apparent distress and healthy appearing HEENT normocephalic and moist oral mucous membranes Head and Scalp: atraumatic Neck full ROM, no lymphadenopathy, supple and thyroid normal General: trachea midline Lymph Lymphatic: no lymphadenopathy noted Chest inspection of chest normal Resp normal respiratory effort Cardio regular rate GI soft to palpation and non-tender GI Narrative: gravid Inspection: gravid external exam normal Manual OB Exam: estimated gestational size appropriate, presentation ceph alic, dilated, effaced and station Extremity normal to inspection General Extremity: Negative for edema Skin no rashes or lesions noted Neuro no focal motor deficits and deep tendon reflexes 2+ bilaterally Motor Exam: strength 5/5 throughout and clonus absent Psych mental status grossly normal Labs Labs Labs: Blood Type O POSITIVE Antibody Screen NEGATIVE Hct 35.2 % (37-47) L Hgb 12.3 g/dL (12.0-15.0) Pap Smear Negative Obstetrics Ultrasound Syphilis Total Ab Nonreactive (Nonreactive) Rubella IgG Antibody Reactive (Nonreactive) Hep Bs Antigen Non-Reactive (Nonreactive) Hepatitis C Antibody Non-Reactive (Nonreactive) Chlamydia DNA (RUPESH) Negative (Negative) N.gonorrhoeae DNA (RUPESH) Negative (Negative) HIV 1&2 Antibody Non-Reactive (Nonreactive) Glucose 1 Hr 50 gm 131 mg/dL (70-140) Assessment & Plan (1) Prolonged rupture of membranes, greater than 24 hours, delivered: (2) Thrombocytopenia affecting : COMMENT: 163 at 37 weeks (3) Anemia affecting : QUALIFIERS: Trimester: third trimester Qualified Code(s): O99.013 - Anemia complicating , third trimester COMMENT: mild. Start FE (4) Supervision of normal : QUALIFIERS: Normal : other normal Trimester: third trimester Qualified Code(s): Z34.83 - Encounter for supervision of other normal , third trimester COMMENT: PRR , MARY KATE 07/27/24 surprise PC: Robby, : Avinash (5) : QUALIFIERS: Weeks of gestation: 38 weeks Qualified Code(s): Z3A.38 - 38 weeks gestation of COMMENT: GBS neg,Nl US. declines genetic/carrier testing, declines AFP. (6) Family history of cleft palate: COMMENT: brother (7) Anxiety: COMMENT: stable, no meds. Hx of zoloft use (8) Hx of herpes genitalis: COMMENT: valtrex at 36 weeks. PLAN: Plan Patient presents with SROM, rest of membranes ruprutred, didscused pitocin. Pain management: plans epidural. GBS neg, will give antibiotics if any signs of infection. Management of any complications: none I have reviewed the [facility] and made any clinically relevant updates.
[2024-07-19] MEDS: Oxytocin 15 Units/NS 250ml 15 UNITS/250 ML IV.SOLN 2 UNITS IV (14:57)
[2024-07-19] MEDS: fentaNYL-bupivacaine (epidural) 100 ML BAG EPIDURAL (17:20)
[2024-07-19] MEDS: Lactated Ringers 1,000 ML 200 ML IV (17:37)
--- NOTE | 2024-07-19 20:38 | PCM.OPRPT ---
Operative Report (Standard) Operative Information Date of Procedure: 07/19/24
--- NOTE | 2024-07-19 21:18 | OB.VAGDELI_ITS ---
Assessment & Plan (1) Prolonged rupture of membranes, greater than 24 hours, delivered: (2) Thrombocytopenia affecting : COMMENT: 163 at 37 weeks (3) Anemia affecting : QUALIFIERS: Trimester: third trimester Qualified Code(s): O99.013 - Anemia complicating , third trimester COMMENT: mild. Start FE (4) Supervision of normal : QUALIFIERS: Normal : other normal Trimester: third trimester Qualified Code(s): Z34.83 - Encounter for supervision of other normal , third trimester COMMENT: PRR , MARY KATE 07/27/24 surprise PC: Robby, : Avinash (5) : QUALIFIERS: Weeks of gestation: 38 weeks Qualified Code(s): Z3A.38 - 38 weeks gestation of COMMENT: GBS neg,Nl US. declines genetic/carrier testing, declines AFP. (6) Family history of cleft palate: COMMENT: brother (7) Hx of herpes genitalis: COMMENT: valtrex at 36 weeks. (8) Anxiety: COMMENT: stable, no meds. Hx of zoloft use (9) Vaginal delivery: COMMENT: SM PROM boy Leisa Maternal Data Information MARY KATE Calculator Estimated Delivery Date Method Current WG Current Estimate 07/27/24 LMP (Certain) 38w 6d Vaginal Delivery Maternal Presentation Maternal Presentation: see assessment and plan Vaginal Delivery Information Procedure Performed: Spontaneous Vaginal Delivery Surgeon/Practitioner: Amanda Mejia Pre-Procedure Diagnosis: see assessment and plan Post-Procedure Diagnosis: same Type of anesthesia: Epidural Estimated Blood Loss: 300 Findings Description of procedure: Patient began pushing and delivered the head in the JOSE presentation. The head was delivered atraumatically and a loose nuchal cord ?1 was identified and easily reduced over the infant's head. The anterior and posterior shoulders delivered without complication followed by the rest of the and the was placed on the maternal abdomen. Delayed cord clamping was employed for approximately 60 seconds. Cord was clamped and cut and gentle traction was applied to the cord and the placenta delivered spontaneously immediately following it was noted to be intact with three-vessel cord. The perineum and vagina were inspected and was noted to have a first -degree laceration that was repaired in the usual fashion with 3-0 vicryl rapide noted to have no laceration. EBL was 300. Patient and infant tolerated delivery well. Presentation: Vertex Placental Delivery Description: Spontaneous Specimen collected: Yes Description of specimen(s) removed: placenta Nail Technician Teacher is manager: No Post Vaginal Deli Medications given after delivery: Other (pitocin) Complication Complications: No Multi Select Codes Urinary/Genital Urinary/Genital CPT Codes: 70998 Vaginal Delivery [facility]
[2024-07-19] MEDS: Oxytocin 15 Units/NS 250ml 15 UNITS/250 ML IV.SOLN 83 UNITS IV (21:27)
--- NOTE | 2024-07-19 22:49 | DCINST_ITS ---
Discharge Instructions DC O2, CPAP, BIPAP needs Home O2 Discharge instructions: No Follow Up Care Test Results: Test results from this visit will be discussed in further detail at your follow- up appointment, if applicable. Discharge Plan Admission Admit Date/Time: 07/19/24 11:11 Attending Provider: Amanda Mejia Primary Care Provider: Heber Knox Discharge Orders/Prescriptions Prescriptions: No Action DHA 200 mg capsule PO promethazine 12.5 mg tablet 12.5 mg PO Q6H PRN (Reason: nausea and vomiting) Qty: 30 2RF metoclopramide HCl [Reglan] 10 mg tablet 10 mg PO Q6H PRN (Reason: nausea and vomiting) Qty: 30 4RF iron PO valacyclovir [Valtrex] 500 mg tablet 500 mg PO BID Qty: 60 12RF Rx Instructions: take one tab twice daily until delivery acyclovir 400 mg tablet 400 mg PO Q6H 7 Days Qty: 28 12RF Referrals / Follow Up: Heber Knox MD [Primary Care Provider] - Disposition Disposition (needs filled in before D/C Order can be placed): Home, Self Care
[2024-07-19] MEDS: Acetaminophen 500 MG Tablet 1000 MG PO (23:49)
[2024-07-20] VITALS (8 sets, daily range): BP systolic 107–119; BP diastolic 62–79; PULSE 72–83; RESP 16; TEMP 36.5–36.9; O2SAT 96–98
--- NOTE | 2024-07-20 07:57 | PCM.PN.OB ---
Subjective Subjective Patient doing well without complaints. Tolerating PO. Ambulating and voiding without difficulty. Feeding well. Denies chest pain, shortness of breath, calf pain/swelling, fevers, chills, lightheadedness. wants to go home tonight if possible. She talked with the racing secretary and handicapper and even though there was prolonged ROM, they told her it was ok to follow up outpatient. Objective Data Objective Data Vital Signs: Vital Signs Temp Pulse Resp BP Pulse Ox O2 Del Method 97.7 F L 74 16 110/62 96 Room Air 07/20/24 02:00 07/20/24 02:25 07/20/24 02:00 07/20/24 02:25 07/20/24 02:00 07/20/24 02:00 Oxygen Delivery Method Room Air Weight: 163 lb 2.273 oz Body Mass Index (BMI) 28.0 Intake & Output: Intake and Output for Last 24 Hours 07/18/24 07/19/24 07/20/24 23:59 23:59 23:59 Intake Total 1511.56 / 1511.56 250 / 250 Output Total 300 / 300 1300 / 1300 Balance 1211.56 / 1211.56 -1050 / -1050 Lab / Micro Data 07/19/24 11:40 Labs: Laboratory Results - last 24 hr 07/19/24 10:30: Vag Amniotic Fld Detect POSITIVE H 07/19/24 11:40: WBC 11.3 H, RBC 3.95 L, Hgb 12.3, Hct 35.2 L, MCV 89.1, MCH 31.1, MCHC 34.9, RDW Std Deviation 41.8, RDW Coeff of Sherrill 13.0, Plt Count 156, MPV 10.5, Immature Gran % (Auto) 2.200 H, Neut % (Auto) 65.2, Lymph % (Auto) 24.3, Dickson % (Auto) 7.7, Eos % (Auto) 0.2, Baso % (Auto) 0.4, Absolute Neuts (auto) 7.4, Absolute Lymphs (auto) 2.75, Nucleated RBC % 0, Syphilis Total Ab Nonreactive, Blood Type O POSITIVE, Antibody Screen NEGATIVE ROS Constitutional Constitutional: Denies chills, fatigue, fever(s), poor appetite or weakness Eyes Eyes: Denies blurry vision, change in vision, seeing flashes or spots in vision ENT HEENT: Denies dizziness, headache(s), loss taste/smell or sore throat Cardiovascular Cardiovascular: Denies chest pain, dizziness, dyspnea, irregular heart rhythm, palpitations or rapid heart rate Respiratory/Chest Respiratory/Chest: Denies chest tightness, cough, dyspnea or breast pain Gastrointestinal Gastrointestinal: Denies abdominal pain, constipation or vomiting Genitourinary Genitourinary: Denies dysuria or flank pain Musculoskeletal Musculoskeletal: Denies difficulty walking, joint pain, limited range of motion or numbness Neurologic Neurologic: Denies abnormal movements, abnormal speech, dizziness, numbness, seizure-like activity or syncope Psychiatric Psychiatric: Denies anxiety, behavioral changes, change in appetite, confusion, depression or suicidal thoughts Physical Exam Const alert, oriented x3 and no apparent distress General Appearance: cooperative and comfortable Resp normal respiratory effort Cardio regular rate GI normal to inspection, nondistended, normoactive bowel sounds GI Narrative: uterus is firm below umbilicus Palpation: soft Back/Spine no CVA tenderness and thoraco-lumbar ROM normal Extremity normal to inspection, no clubbing, cyanosis or edema, no calf tenderness and no pedal edema Psych mental status grossly normal, thought process normal, cooperative, affect normal, speech normal, activity/motor behavior normal, denies homicidal ideation and denies suicidal ideation Assessment & Plan (1) Vaginal delivery: COMMENT: PROM boy Leisa (2) Prolonged rupture of membranes, greater than 24 hours, delivered: (3) Thrombocytopenia affecting : COMMENT: 163 at 37 weeks (4) Anemia affecting : QUALIFIERS: Trimester: third trimester Qualified Code(s): O99.013 - Anemia complicating , third trimester COMMENT: mild. Start FE (5) Supervision of normal : QUALIFIERS: Normal : other normal Trimester: third trimester Qualified Code(s): Z34.83 - Encounter for supervision of other normal , third trimester COMMENT: PRR , MARY KATE 07/27/24 surprise PC: Robby, : Avinash (6) : QUALIFIERS: Weeks of gestation: 38 weeks Qualified Code(s): Z3A.38 - 38 weeks gestation of COMMENT: GBS neg,Nl US. declines genetic/carrier testing, declines AFP. (7) Family history of cleft palate: COMMENT: brother (8) Hx of herpes genitalis: COMMENT: valtrex at 36 weeks. (9) Anxiety: COMMENT: stable, no meds. Hx of zoloft use
[2024-07-20] MEDS: Naproxen 500 MG Tablet PO (09:33)
--- NOTE | 2024-07-20 13:02 | CASEMGMT ---
Social Work Brief Assessment - Labor and Delivery Unit Patient Address: [address] [place] [address] [place] [address] Phone number: [phone] Date and Time of Referral:? 07/20/24, 025 Referred By: Dr. Mejia Date and time of intervention:? 07/20/24, 1150 Reason for Referral:?? anxiety, depression Sw completed chart review and acknowledges social work consult due to maternal mental health. Sw presented to bedside and introduced self to mother of baby (MOB- Rachel) and father of baby (FOB- Avinash). Sw explained reason for sw involvement and met with parents to complete assessment. Parents had visitors present and MOB stated it was okay to continue questions while they were visiting. Informant:?? Medical record, MOB and FOB History:? JUNAID is 29 year old female who is 2, para 1- now 2 following labor and delivery of . MOB received routine care during with [facility]. JUNAID presented to hospital and delivered baby via vaginal delivery on 07/19/24 at 38 weeks gestation. Baby boy, named Leisa De La Cruz, was born weighing 8lb 1oz with apgars of 8 and 9 at one and five minutes of life, respectfully. JUNAID is breast feeding and reports that baby will be followed by Dr. Law for pediatrics. Parents report that they both work outside of the home, and have childcare arranged with family members. Parents report to obtaining all necessary baby supplies and have natural supports in place. Sw educated parents on signs and symptoms of baby blues and depression and anxiety. MOB states that she does not require medications to help manage her mental health symptoms, and she felt really good throughout . MOB states that since baby has been born she has not felt anxious, overwhelmed or sad/ emotional. FOB states that if MOB were to struggle with her mental health during this period he would be able to recognize that and would know how to help and support her. Assessment:? MOB and baby admitted following labor and delivery. MOB with mental health history with depression and anxiety. MOB is not prescribed any medications to help her manage her symptoms and is not receiving any supports from mental health services. MOB reports that her mental health is able to be managed without medication as she uses healthy and appropriate coping mechanisms. MOB observed laying in bed comfortably and FOB sitting on couch. MOB reports to feeling a lan/ connection with baby. MOB ahs a 1 year old at home, she states that she is eager to be home so they can adjust to being a family of four. Plan:?Handouts provided to parents regarding: safe sleep, shaken baby prevention, symptoms and red flags regarding baby blues and depression/ anxiety, Help Me Grow and a list of county resources. MOB and baby to be discharged when medically ready for discharge. ? No further needs requested or indicated. Regina Keith, PASSENGER CAR UPHOLSTERER APPRENTICE, BANK TELLER MACHINE MECHANIC
--- NOTE | 2024-07-26 18:16 | NURSING ---
Follow up phone call attempted. Patient did not answer, LVM.
== END 2024-07-20 22:23 | disposition home or self-care (01) | DRG 806 ==
LOC: WPOUT 11:17 → WP 11:17
PROVIDERS: Admitting Provider Obstetrics & Gynecology; PCP Family Medicine; Referring Provider Obstetrics & Gynecology; Visit Provider Obstetrics & Gynecology
DX: O42.12 Full-term premature rupture of membranes, onset of labor more than 24 hours following rupture (principal); Z37.0 Single live birth; O99.12 Other diseases of the blood and blood-forming organs and certain disorders involving the immune mechanism complicating childbirth; D69.6 Thrombocytopenia, unspecified; F41.9 Anxiety disorder, unspecified; O99.344 Other mental disorders complicating childbirth; Z3A.38 38 weeks gestation of pregnancy; O99.02 Anemia complicating childbirth; Z86.19 Personal history of other infectious and parasitic diseases; Z82.79 Family history of other congenital malformations, deformations and chromosomal abnormalities; O69.81X0 Labor and delivery complicated by cord around neck, without compression, not applicable or unspecified; O70.0 First degree perineal laceration during delivery
CPT/HCPCS: 59025; 59050; 84112; 85025; 86780; 86850; 86900; 86901; 99221; G0378

== ENCOUNTER → 2024-08-29 | Outpatient (CLI) | payer OTHER, SELFPAY ==
[2024-09-04 15:16] LABS: HPV Reflexed? NOT INDICATED
== END | disposition home or self-care (01) ==
LOC: LABSPEC 16:21
PROVIDERS: PCP Family Medicine; Referring Provider Advanced Practice Midwife; Visit Provider Advanced Practice Midwife
DX: Z12.4 Encounter for screening for malignant neoplasm of cervix (principal)
CPT/HCPCS: 88175; G0145